=== PATIENT | female | born 1975 ===

== ENCOUNTER 2020-04-25 06:20 | Day surgery (SDC) | payer OTHER ==
[~2020-04-25 06:20] MED LIST: PROTECT IRON T1 EACH PO
[2020-04-25] MEDS ORDERED: RECTICARE30 GM TOP (09:16)
[2020-04-25] MEDS ORDERED: PERCOCET 5-3251 EACH PO (09:16)
== END 2020-04-25 13:20 | disposition home or self-care (01) ==
LOC: CIR.AMB 06:20
PROVIDERS: ATTEND Surgery
DX: K64.2 Third degree hemorrhoids (principal); Z20.828 Contact with and (suspected) exposure to other viral communicable diseases